=== PATIENT | female | born 1930 | race Caucasian/White ===

== ENCOUNTER 2017-09-04 17:55 | Emergency (ER) | payer MEDICARE, OTHER ==
[~2017-09-04] VITALS: Ht 165.1 cm; Wt 72.0 kg
[2017-09-04 18:00] VITALS: BP 173/81; PULSE 95; RESP 16; TEMP 97.7; O2SAT 97
--- NOTE | 2017-09-04 18:11 | PD ---
HPI Chief Complaint: Constipation, abdominal pain Time Seen by Provider: 18:05 Travel History International Travel<30 days: No Contact w/Intl Traveler<30days: No Traveled to known affect area: No History of Present Illness HPI 87-year-old female came to the emergency room brought by her granddaughter for 2 weeks of rectal bleeding. Patient also says that she hasn't had a bowel movement in 2 days. She has been having some abdominal pain. She went to an urgent care and they sent her to the emergency room to get a CAT scan. No history of vomiting. Vital signs are stable. Patient is not on any medications. She had a colonoscopy many years ago and at that time it was normal as per the patient. Abdominal pain is generalized. Worse on laying and pushing on it. [facility] Past Medical History Narrative Medical List of her past medical, surgical, social and family history is reviewed from the nursing note. Social History Tobacco Use: No Allergies-Medications (Allergen,Severity, Reaction): Coded Allergies: No Known Allergies (Unverified , 09/04/17) Comments No known drug allergies. Reported Meds & Prescriptions Reported Meds & Active Scripts Active Miralax Powder (Polyethylene Glycol 3350 Powder) 17 Gm Powd 17 Gm PO DAILY Mix and dissolve one measuring cap-ful (17 grams) in water or juice. Narrative Medication Awaiting for the nurse to the med reconciliation. Review of Systems Except as stated in HPI: all other systems reviewed are Neg Gastrointestinal: Positive: Abdominal Pain, Hematochezia, Constipation Physical Exam Narrative GENERAL: Awake, alert, elderly, mild distress, looks and within her age SKIN: Focused skin assessment warm/dry. HEAD: Atraumatic. Normocephalic. EYES: Pupils equal and round. No scleral icterus. No injection or drainage. ENT: No nasal bleeding or discharge. Mucous membranes pink and moist. NECK: Trachea midline. No JVD. CARDIOVASCULAR: Regular rate and rhythm. No murmur appreciated. RESPIRATORY: No accessory muscle use. Clear to auscultation. Breath sounds equal bilaterally. GASTROINTESTINAL: Abdomen soft, diffuse tenderness on palpation, nondistended. Hepatic and splenic margins not palpable. External hemorrhoids with no thrombosed veins MUSCULOSKELETAL: No obvious deformities. No clubbing. No cyanosis. No edema. NEUROLOGICAL: Awake and alert. No obvious cranial nerve deficits. Motor grossly within normal limits. Normal speech. PSYCHIATRIC: Appropriate mood and affect; insight and judgment normal. Data Data Last Documented VS Orders Orders Complete Blood Count With Diff (09/04/17 18:15) Comprehensive Metabolic Panel (09/04/17 18:15) Lipase (09/04/17 18:15) Ct Abd/Pel W/O Iv Contrast (09/04/17 18:15) Iv Access Insert/Monitor (09/04/17 18:15) Ecg Monitoring (09/04/17 18:15) Oximetry (09/04/17 18:15) Sodium Chlor 0.9% 1000 Ml Inj (Ns 1000 M (09/04/17 18:15) Sodium Chloride 0.9% Flush (Ns Flush) (09/04/17 18:15) Type And Screen (09/04/17 18:15) Prothrombin Time / Inr (Pt) (09/04/17 18:15) Urinalysis - C+S If Indicated (09/04/17 19:52) Orthostatic Vital Signs (09/04/17 20:30) Ed Discharge Order (09/04/17 20:41) Labs Laboratory Tests Test 09/04/17 18:40 09/04/17 20:00 White Blood Count 6.2 TH/MM3 Red Blood Count 4.41 MIL/MM3 Hemoglobin 14.6 GM/DL Hematocrit 42.6 % Mean Corpuscular Volume 96.5 FL Mean Corpuscular Hemoglobin 33.0 PG Mean Corpuscular Hemoglobin Concent 34.2 % Red Cell Distribution Width 13.3 % Platelet Count 204 TH/MM3 Mean Platelet Volume 8.3 FL Neutrophils (%) (Auto) 68.9 % Lymphocytes (%) (Auto) 22.1 % Monocytes (%) (Auto) 7.4 % Eosinophils (%) (Auto) 0.7 % Basophils (%) (Auto) 0.9 % Neutrophils # (Auto) 4.3 TH/MM3 Lymphocytes # (Auto) 1.4 TH/MM3 Monocytes # (Auto) 0.5 TH/MM3 Eosinophils # (Auto) 0.0 TH/MM3 Basophils # (Auto) 0.1 TH/MM3 CBC Comment DIFF FINAL Differential Comment Prothrombin Time 10.2 SEC Prothromb Time International Ratio 1.0 RATIO Blood Urea Nitrogen 16 MG/DL Creatinine 0.83 MG/DL Random Glucose 102 MG/DL Total Protein 7.7 GM/DL Albumin 3.8 GM/DL Calcium Level 8.7 MG/DL Alkaline Phosphatase 90 U/L Aspartate Amino Transf (AST/SGOT) 24 U/L Alanine Aminotransferase (ALT/SGPT) 20 U/L Total Bilirubin 0.6 MG/DL Sodium Level 138 MEQ/L Potassium Level 4.0 MEQ/L Chloride Level 104 MEQ/L Carbon Dioxide Level 26.6 MEQ/L Anion Gap 7 MEQ/L Estimat Glomerular Filtration Rate 65 ML/MIN Lipase 67 U/L Urine Color YELLOW Urine Turbidity CLEAR Urine pH 5.5 Urine Specific [place] 1.010 Urine Protein NEG mg/dL Urine Glucose (UA) NEG mg/dL Urine Ketones NEG mg/dL Urine Occult Blood SMALL Urine Nitrite NEG Urine Bilirubin NEG Urine Urobilinogen LESS THAN 2.0 MG/DL Urine Leukocyte Esterase NEG Urine RBC 3 /hpf Urine WBC 1 /hpf Urine Squamous Epithelial Cells 2 /hpf Urine Hyaline Casts 3 /lpf Urine Mucus FEW /lpf Microscopic Urinalysis Comment CULT NOT INDICATED MDM Medical Decision Making Medical Screen Exam Complete: Yes Emergency Medical Condition: Yes Medical Record Reviewed: Yes Differential Diagnosis Constipation, acute diverticulitis, hemorrhoid bleeding Narrative Course 6:39 PM awaiting for blood test results and CAT scan to be done and resulted. The case will be signed over to the oncoming ER physician. 7:[address] scan is negative. Awaiting for the blood test results. Patient will be signed over to the oncoming ER physician. Procedures EKG Prior to Arrival: No HemaPrompt Point of Care Internal Pos. & Neg. Controls: Passed Fecal Specimen Occult Blood: Negative Scripts Polyethylene Glycol 3350 Powder (Miralax Powder) 17 Gm Powd 17 GM PO DAILY for Constipation, #1 CAN 0 Refills Mix and dissolve one measuring cap-ful (17 grams) in water or juice. Prov: Yimi Costello MD 09/04/17 Kendra Cho MD Sep 04, 2017 18:11
[2017-09-04] MEDS ORDERED: SODIUM CHLOR 0.9% 1000 ML INJ 1,000 ML IV SCH (18:15)
[2017-09-04] MEDS ORDERED: SODIUM CHLORIDE 0.9% FLUSH 10 ML FLUSH IV FLUSH PRN (18:15)
[2017-09-04 18:20] VITALS: BP 134/75; PULSE 97; RESP 12
--- NOTE | 2017-09-04 18:58 | RADRPT ---
EXAM DATE/TIME: 09/04/2017 18:40 [place] COMPARISON: No previous studies available for comparison. INDICATIONS : Rectal bleed and constipation. ORAL CONTRAST: No oral contrast ingested. RADIATION DOSE: 8.52 CTDIvol (mGy) MEDICAL HISTORY : None SURGICAL HISTORY : Appendectomy. Cholecystectomy. Hysterectomy. ENCOUNTER: Initial ACUITY: 3 days PAIN SCALE: 0/10 LOCATION: lower quadrant TECHNIQUE: Volumetric scanning of the abdomen and pelvis was performed. Using automated exposure control and ad justment of the mA and/or kV according to patient size, radiation dose was kept as low as reasonably achievable to obtain optimal diagnostic quality images. DICOM format image data is available electro nically for review and comparison. FINDINGS: Lung bases are clear. No acute findings in the liver, spleen, adrenals or pancreas. 4.7 cm left renal cyst. No pelvic masses or free fluid. There is mild constipation. No free air. No bowel obstruction. No acute bony abnormality. Incidental hemangioma at T12. CONCLUSION: 1. No acute findings. No constipation. Postoperative appendectomy, cholecystectomy and hysterectomy. Tal Davila MD on September 04, 2017 at 18:51 Board Certified Radiologist. This report was verified electronically.
[2017-09-04 19:05] LABS: AUTOMATED NEUTROPHIL # 4.3 TH/MM3 (1.8-7.7); BASOPHIL # 0.1 TH/MM3 (0-0.2); BASOPHIL % 0.9 % (0.0-2.0); EOSINOPHIL % 0.7 % (0.0-4.0); HEMATOCRIT 42.6 % (35.0-46.0); HEMOGLOBIN 14.6 GM/DL (11.6-15.3); LYMPH % 22.1 % (9.0-44.0); LYMPHOCYTE # 1.4 TH/MM3 (1.0-4.8); MEAN CELL VOLUME 96.5 FL (80.0-100.0); MEAN CORPUSCULAR HGB CONC 34.2 % (32.0-36.0); MEAN PLATELET VOLUME 8.3 FL (7.0-11.0); MONO % 7.4 % (0.0-8.0); MONOCYTE # 0.5 TH/MM3 (0-0.9); NEUT % 68.9 % (16.0-70.0); PLATELET COUNT 204 TH/MM3 (150-450); PROTHROMBIN TIME - PATIENT 10.2 SEC (9.8-11.6); RED BLOOD COUNT 4.41 MIL/MM3 (4.00-5.30); RED CELL DISTRIBUTION WIDTH 13.3 % (11.6-17.2); WHITE BLOOD COUNT 6.2 TH/MM3 (4.0-11.0)
[2017-09-04 19:13] LABS: ALBUMIN 3.8 GM/DL (3.4-5.0); ALT (GPT) 20 U/L (10-53); AST (GOT) 24 U/L (15-37); BICARBONATE 26.6 MEQ/L (21.0-32.0); BLOOD UREA NITROGEN 16 MG/DL (7-18); CALCIUM 8.7 MG/DL (8.5-10.1); CHLORIDE 104 MEQ/L (98-107); CREATININE 0.83 MG/DL (0.50-1.00); GLOMERULAR FILTRATION RATE 65 ML/MIN (>89); GLUCOSE,RANDOM 102 MG/DL (74-106); LIPASE 67 U/L (73-393); SODIUM (NA) 138 MEQ/L (136-145)
[2017-09-04 19:15] LABS: ALKALINE PHOSPHATASE 90 U/L (45-117); TOTAL BILIRUBIN ADULT 0.6 MG/DL (0.2-1.0); TOTAL PROTEIN 7.7 GM/DL (6.4-8.2)
[2017-09-04 20:24] LABS: BILIRUBIN, URINE NEG (NEG); BLOOD, URINE SMALL (NEG); GLUCOSE,URINE NEG (NEG); HYALINE CAST, URINE 3 /lpf (RARE); KETONE, URINE NEG (NEG); MUCUS URINE FEW /lpf (OCC); NITRITE,URINE NEG (NEG); PH, URINE 5.5 (5.0-8.5); SQUAMOUS EPITHELIAL CELL URINE 2 /hpf (0-5); URINE COLOR YELLOW (YELLW/STRAW); URINE LEUKOCYTE ESTERASE NEG (NEG)
[2017-09-04] MEDS ORDERED: MIRA3350 PO (20:33)
--- NOTE | 2017-09-04 20:33 | PD ---
Data Data Last Documented VS Vital Signs Date Time Temp Pulse Resp B/P (MAP) Pulse Ox O2 Delivery O2 Flow Rate FiO2 09/04/17 18:20 97 12 134/75 (94) 09/04/17 18:00 97.7 97 Room Air Orders Orders Complete Blood Count With Diff (09/04/17 18:15) Comprehensive Metabolic Panel (09/04/17 18:15) Lipase (09/04/17 18:15) Ct Abd/Pel W/O Iv Contrast (09/04/17 18:15) Iv Access Insert/Monitor (09/04/17 18:15) Ecg Monitoring (09/04/17 18:15) Oximetry (09/04/17 18:15) Sodium Chlor 0.9% 1000 Ml Inj (Ns 1000 M (09/04/17 18:15) Sodium Chloride 0.9% Flush (Ns Flush) (09/04/17 18:15) Type And Screen (09/04/17 18:15) Prothrombin Time / Inr (Pt) (09/04/17 18:15) Urinalysis - C+S If Indicated (09/04/17 19:52) Orthostatic Vital Signs (09/04/17 20:30) Labs Laboratory Tests Test 09/04/17 18:40 09/04/17 20:00 White Blood Count 6.2 TH/MM3 Red Blood Count 4.41 MIL/MM3 Hemoglobin 14.6 GM/DL Hematocrit 42.6 % Mean Corpuscular Volume 96.5 FL Mean Corpuscular Hemoglobin 33.0 PG Mean Corpuscular Hemoglobin Concent 34.2 % Red Cell Distribution Width 13.3 % Platelet Count 204 TH/MM3 Mean Platelet Volume 8.3 FL Neutrophils (%) (Auto) 68.9 % Lymphocytes (%) (Auto) 22.1 % Monocytes (%) (Auto) 7.4 % Eosinophils (%) (Auto) 0.7 % Basophils (%) (Auto) 0.9 % Neutrophils # (Auto) 4.3 TH/MM3 Lymphocytes # (Auto) 1.4 TH/MM3 Monocytes # (Auto) 0.5 TH/MM3 Eosinophils # (Auto) 0.0 TH/MM3 Basophils # (Auto) 0.1 TH/MM3 CBC Comment DIFF FINAL Differential Comment Prothrombin Time 10.2 SEC Prothromb Time International Ratio 1.0 RATIO Blood Urea Nitrogen 16 MG/DL Creatinine 0.83 MG/DL Random Glucose 102 MG/DL Total Protein 7.7 GM/DL Albumin 3.8 GM/DL Calcium Level 8.7 MG/DL Alkaline Phosphatase 90 U/L Aspartate Amino Transf (AST/SGOT) 24 U/L Alanine Aminotransferase (ALT/SGPT) 20 U/L Total Bilirubin 0.6 MG/DL Sodium Level 138 MEQ/L Potassium Level 4.0 MEQ/L Chloride Level 104 MEQ/L Carbon Dioxide Level 26.6 MEQ/L Anion Gap 7 MEQ/L Estimat Glomerular Filtration Rate 65 ML/MIN Lipase 67 U/L Urine Color YELLOW Urine Turbidity CLEAR Urine pH 5.5 Urine Specific [place] 1.010 Urine Protein NEG mg/dL Urine Glucose (UA) NEG mg/dL Urine Ketones NEG mg/dL Urine Occult Blood SMALL Urine Nitrite NEG Urine Bilirubin NEG Urine Urobilinogen LESS THAN 2.0 MG/DL Urine Leukocyte Esterase NEG Urine RBC 3 /hpf Urine WBC 1 /hpf Urine Squamous Epithelial Cells 2 /hpf Urine Hyaline Casts 3 /lpf Urine Mucus FEW /lpf Microscopic Urinalysis Comment CULT NOT INDICATED MDM Supervised Visit with SYDNEY: No Narrative Course CT of abdomen does not show any pathology she has some fecal hard stool in the transverse colon and sigmoid. Her H&H is within normal limits. And she is ambulating without dizziness or ataxia. She is discharged follow with her doctor as an outpatient MiraLAX prescription is given to help her move her bowels more frequently possibly reduce her hemorrhoid risk. Diagnosis Primary Impression: Constipation Qualified Codes: K59.00 - Constipation, unspecified Additional Impression: Rectal bleeding Patient Instructions: Constipation (ED), General Instructions Scripts Polyethylene Glycol 3350 Powder (Miralax Powder) 17 Gm Powd 17 GM PO DAILY for Constipation, #1 CAN 0 Refills Mix and dissolve one measuring cap-ful (17 grams) in water or juice. Prov: Yimi Costello MD 09/04/17 Disposition: 01 DISCHARGE HOME Condition: Good Yimi Costello MD Sep 04, 2017 20:33
[2017-09-04 20:45] VITALS: BP 152/82; RESP 14
== END 2017-09-04 20:46 | disposition home or self-care (01) ==
LOC: NED 17:55
DX: K59.00 Constipation, unspecified (principal); K62.5 Hemorrhage of anus and rectum; R10.84 Generalized abdominal pain
CPT/HCPCS: 74176; 80053; 81001; 83690; 85025; 85610; 86850; 86900; 86901; 99285; J7030